=== PATIENT | male | born 1955 | race Two or more races ===

== ENCOUNTER 2018-03-08 11:47 | Emergency (ER) | payer OTHER ==
[~2018-03-08] VITALS: Ht 165.1 cm; Wt 83.9 kg
[2018-03-08 12:55] VITALS: BP 160/70
[2018-03-08] MEDS ORDERED: METHOCARBAMOL 500 MG TAB PO ONE (14:15)
== END 2018-03-08 14:34 | disposition home or self-care (01) ==
LOC: ER 11:50
DX: S80.01XA Contusion of right knee, initial encounter (principal); I10 Essential (primary) hypertension; E07.9 Disorder of thyroid, unspecified; Y93.89 Activity, other specified; W10.8XXA Fall (on) (from) other stairs and steps, initial encounter; Y99.0 Civilian activity done for income or pay; Y92.89 Other specified places as the place of occurrence of the external cause
CPT/HCPCS: 73562